=== PATIENT | male | born 1980 | race Caucasian/White ===

== ENCOUNTER 2019-03-20 21:10 | Emergency (ER) | payer SELFPAY ==
--- NOTE | 2019-03-20 21:15 | EDM.PDOC ---
ED HPI GENERAL MEDICAL PROBLEM - General Chief Complaint: Upper Extremity Injury/Pain Stated Complaint: POSSIBLE BROKEN RT HAND Time Seen by Provider: 03/20/19 21:14 Source of Information: Reports: Patient History Limitations: Reports: No Limitations - History of Present Illness INITIAL COMMENTS - FREE TEXT/NARRATIVE: HISTORY AND PHYSICAL: History of present illness: 38-year-old male presents to the emergency room complaining of right hand pain. He indicates that he was at home working on a car when a wrench slipped out of his right hand and in frustration he punched the car. Most of his pain is located to the dorsal lateral side fourth and fifth digits. He is able to move the wrist without any pain nor does he have any pinpoint tenderness upon palpation. Denies any other extremity involvement or pain. Took ibuprofen at home upon the time of the incident. Reports he is otherwise in good health and has no other health conditions. Review of systems: As per history of present illness and below otherwise all systems reviewed and negative. Past medical history: As per history of present illness and as reviewed below otherwise noncontributory. Surgical history: As per history of present illness and as reviewed below otherwise noncontributory. Social history: See social history for further information Family history: As per history of present illness and as reviewed below otherwise noncontributory. Physical exam: General: Well-developed and well-nourished 38-year-old male. Alert and oriented. Nontoxic appearing and in no acute distress. HEENT: Atraumatic, normocephalic, pupils equal and reactive bilaterally, negative for conjunctival pallor or scleral icterus, mucous membranes moist, trachea midline. No drooling or trismus noted. No meningeal signs. No hot potato voice noted. Lungs: Clear to auscultation, breath sounds equal bilaterally. Heart: S1S2, regular rate and rhythm without overt murmur Abdomen: Soft, nondistended, nontender. Skin: See extremity for details. Intact, warm, dry. No lesions or rashes noted. Extremities: Soft tissue swelling and tenderness to the base of the hand to the fourth and fifth digits. Good flexion and extension of the wrist. No snuffbox tenderness. Good flexion and extension of all digits. Strong radial pulse. Otherwise moves all other extremities per self without difficulty or deficits. Neurovascular unremarkable. Neuro: Awake, alert, oriented. Cranial nerves II through XII unremarkable. Cerebellum unremarkable. Motor and sensory unremarkable throughout. Exam nonfocal. Notes: Patient declines the need for wrist x-ray. He has no tenderness into the wrist. Agreeable for hand imaging. X-ray shows an acute, comminuted 5th metacarpal base fracture with ulnar subluxation of the primary shaft fragment. Fiberglass splint placed on patient along with sling. We discussed the need for appropriate follow-up with the orthopedic provider. Signs and symptoms that would prompt him to return to the emergency room were reviewed and discussed. Supportive care measures were reviewed and discussed. Voices understanding and is agreeable to plan of care. Denies any further questions or concerns at this time. Diagnostics: X-ray right hand Therapeutics: Fiberglass splint, sling Prescription: Gary #20 Impression: Metacarpal Fracture, fifth digit on right hand Plan: 1. Rest, ice, elevate the affected extremity. Please wear the splint and sling as directed. 2. Tylenol and/or Ibuprofen as needed for pain management. Gary for moderate to severe pain. This medication may cause drowsiness a do not take it on driving or needing to be functioning outside of the house. 3. Follow up with the Orthopedic provider as we discussed. Please call on Friday to set up a follow-up appointment within the next 1 week. Return to the ED as needed and as discussed. Definitive disposition and diagnosis as appropriate pending reevaluation and review of above. Onset: Today Location: Reports: Upper Extremity, Right Right Hand Pain Score (Numeric/FACES): 7 - Related Data Allergies Allergy/AdvReac Type Severity Reaction Status Date / Time No Known Allergies Allergy Verified 03/20/19 21:19 Home Meds: Home Meds . [No Known Home Meds] 03/20/19 [History] Review of Systems - Review of Systems Review Of Systems: ROS reveals no pertinent complaints other than HPI. ED EXAM, GENERAL - Physical Exam Exam: See Below (See dictation) Course - Vital Signs Last Recorded V/S: Last Vital Signs Temp 97.5 F 03/20/19 21:13 Pulse 85 03/20/19 21:13 Resp BP 149/100 H 03/20/19 21:13 Pulse Ox 98 03/20/19 21:13 - Orders/Labs/Meds Orders: Active Orders 24 hr Category Date Time Status Hand Comp Min 3V Rt [CR] Stat Exams 03/20/19 21:14 Taken Meds: Medications Discontinued Medications Generic Name Dose Route Start Last Admin Trade Name Belia PRN Reason Stop Dose Admin Ketorolac Tromethamine 60 mg 03/20/19 21:18 03/20/19 21:44 Toradol IM 03/20/19 21:19 Not Given ONETIME ONE Departure - Departure Time of Disposition: 21:31 Disposition: Home, Self-Care 01 Clinical Impression: Fracture, metacarpal Qualifiers: Encounter type: initial encounter Metacarpal bone: fifth Fracture type: closed Metacarpal location: base Fracture alignment: nondisplaced Laterality: right Qualified Code(s): S62.346A - Nondisplaced fracture of base of fifth metacarpal bone, right hand, initial encounter for closed fracture - Discharge Information Instructions: Metacarpal Fracture, [id number] Referrals: PCP,None [Primary Care Provider] - Forms: ED Department Discharge Additional Instructions: The following information is given to patients seen in the emergency department who are being discharged to home. This information is to outline your options for follow-up care. We provide all patients seen in our emergency department with a follow-up referral. The need for follow-up, as well as the timing and circumstances, are variable depending upon the specifics of your emergency department visit. If you don't have a primary care physician on staff, we will provide you with a referral. We always advise you to contact your personal physician following an emergency department visit to inform them of the circumstance of the visit and for follow-up with them and/or the need for any referrals to a consulting specialist. The emergency department will also refer you to a specialist when appropriate. This referral assures that you have the opportunity for follow-up care with a specialist. All of these measure are taken in an effort to provide you with optimal care, which includes your follow-up. Under all circumstances we always encourage you to contact your private physician who remains a resource for coordinating your care. When calling for follow-up care, please make the office aware that this follow-up is from your recent emergency room visit. If for any reason you are refused follow-up, please contact the [facility] Emergency Department at and asked to speak to the emergency department charge nurse. [facility] [address] [place] [address] [facility] [address] [place] [address] [facility] Professional Building [address], [address] [place] [address] 1. Rest, ice, elevate the affected extremity. Please wear the splint and sling as directed. 2. Tylenol and/or Ibuprofen as needed for pain management. Gary for moderate to severe pain. This medication may cause drowsiness a do not take it on driving or needing to be functioning outside of the house. 3. Follow up with the Orthopedic provider as we discussed. Please call on Friday to set up a follow-up appointment within the next 1 week. Return to the ED as needed and as discussed. - My Orders Last 24 Hours: My Active Orders 03/20/19 21:14 Hand Comp Min 3V Rt [CR] Stat - Assessment/Plan Last 24 Hours: My Active Orders 03/20/19 21:14 Hand Comp Min 3V Rt [CR] Stat
[2019-03-20] MEDS ORDERED: Ketorolac 60 MG/2 ML SDV IM ONE (21:18)
--- NOTE | 2019-03-20 21:49 | CR ---
INDICATION: Pain following punching car. TECHNIQUE: Three views of the right hand. COMPARISON: None. FINDINGS: Acute, comminuted fracture of the 5th metacarpal base with ulnar subluxation of the primary shaft fragment. No other fracture or other significant abnormality. IMPRESSION: Acute, comminuted 5th metacarpal base fracture with ulnar subluxation of the primary shaft fragment. Dictated by George Rachel MD @ Mar 20 2019 9:46PM Signed by Dr. George Rachel @ Mar 20 2019 9:48PM
== END 2019-03-20 21:50 | disposition home or self-care (01) ==
LOC: MW.ED 21:10
DX: S62.346A Nondisplaced fracture of base of fifth metacarpal bone, right hand, initial encounter for closed fracture (principal); W20.8XXA Other cause of strike by thrown, projected or falling object, initial encounter
CPT/HCPCS: 73130-26-RT; 73130-RT; 99283-25

== ENCOUNTER 2022-04-30 12:50 | Emergency (ER) | payer SELFPAY ==
[2022-04-30] MEDS ORDERED: Sodium Chloride 0.9% 1,000 ML IV ONE (13:23)
[2022-04-30] MEDS ORDERED: Dexamethasone 10 MG/ML SDV IVPUSH ONE (13:24)
[2022-04-30] MEDS ORDERED: Clindamycin Phosphate in D5W 600 MG in Premix Bag 1 BAG IV ONE ×2 (13:24)
[2022-04-30 14:23] LABS: CARBON DIOXIDE,CO2 28.4 mmol/L (21.0-32.0)
[2022-04-30] MEDS ORDERED: Iopamidol 755 MG/ML 500 ML Multipack Bottle IVPUSH STA (15:13)
== END 2022-04-30 17:37 | disposition home or self-care (01) ==
LOC: MW.ED 12:50
DX: L03.211 Cellulitis of face (principal); K04.7 Periapical abscess without sinus; Z20.822 Contact with and (suspected) exposure to COVID-19
CPT/HCPCS: 36415; 70487; 80053; 85025; 87635; 96361; 96365; 96375; 99283; J1100; J3490; J7030; Q9967; 99284; U0002

== ENCOUNTER 2024-02-19 00:21 | Day surgery (SDC) | payer MEDICAID ==
[2024-02-19 01:38] LABS: BASOPHILS ABSOLUTE AUTO 0.06 K/uL (0.00-0.20); BASOPHILS PERCENT AUTO 0.3 % (0.0-1.0); HEMATOCRIT 41.7 % (42.0-52.0); HEMOGLOBIN 14.3 g/dL (14.0-18.0); IMMATURE GRAN ABSOLUTE AUTO 0.06 K/uL (0.00-0.05); IMMATURE GRAN PERCENT AUTO 0.3 % (0.0-0.4); LYMPHOCYTES ABSOLUTE AUTO 1.05 K/uL (1.00-4.80); LYMPHOCYTES PERCENT AUTO 5.4 % (24.0-44.0); MEAN CORPUSCULAR HEMOGLOBIN 28.9 pg (28.0-32.0); MEAN CORPUSCULAR HGB CONC 34.3 g/dL (32.0-36.0); MEAN CORPUSCULAR VOLUME 84.4 fL (83.0-99.0); MONOCYTES ABSOLUTE AUTO 1.05 K/uL (0.00-0.80); MONOCYTES PERCENT AUTO 5.4 % (0.0-8.0); NEUTROPHILS ABSOLUTE AUTO 17.33 K/uL (1.80-7.70); NEUTROPHILS PERCENT AUTO 88.6 % (41.0-71.0); PLATELET COUNT,PLT 268 K/uL (150-400); RED BLOOD CELL COUNT 4.94 M/uL (4.52-5.90); WHITE BLOOD CELL COUNT,WBC 19.55 K/uL (3.9-11.3)
[2024-02-19] MEDS: Ondansetron 4 MG/2 ML SDV IVPUSH ONE (01:38)
[2024-02-19] MEDS: Sodium Chloride 0.9% 1,000 ML IV ONE (01:38)
[2024-02-19] MEDS: Sodium Chloride 0.9% 2.5 ML Syringe FLUSH PRN (01:38)
[2024-02-19] MEDS: Sodium Chloride 0.9% 10 ML Syringe FLUSH PRN (01:38)
[2024-02-19] MEDS: Famotidine 20 MG/2 ML SDV IVPUSH ONE (01:40)
[2024-02-19] MEDS: Morphine 2 MG/ML SYRINGE IVPUSH ONE (01:43)
[2024-02-19 02:04] LABS: ALBUMIN 3.7 g/dL (3.4-5.0); BILIRUBIN TOTAL 0.8 mg/dL (0.2-1.0); CALCIUM 8.9 mg/dL (8.5-10.1); CARBON DIOXIDE,CO2 27.6 mmol/L (21.0-32.0); CREATININE 0.8 mg/dL (0.8-1.3); EST CRCL DRUG DOSING (CG) 143.77 mL/min; POTASSIUM,K 3.5 mmol/L (3.5-5.1); PROTEIN TOTAL,TP 7.3 g/dL (6.4-8.2)
[2024-02-19] MEDS: Iopamidol 755 MG/ML 500 ML Multipack Bottle IVPUSH ONE (02:25)
[2024-02-19] MEDS: Piperacillin/Tazobactam 4.5 GM in Sodium Chloride 0.9% 100 ML IV ONE (03:00)
[2024-02-19] MEDS ORDERED: D5 1/2 NS w/ 40 mEq/L KCl 1,000 ML IV SCH (04:45)
[2024-02-19] MEDS: Lactated Ringers 1,000 ML IV SCH (04:52)
[2024-02-19 04:57] LABS: APPEARANCE,URINE CLEAR; BILIRUBIN,URINE NEGATIVE (NEGATIVE); COLOR,URINE YELLOW; GLUCOSE,URINE NEGATIVE (NEGATIVE); KETONES,URINE TRACE mg/dL (NEGATIVE); LEUKOCYTE ESTERASE,URINE TRACE (NEGATIVE); NITRITE,URINE NEGATIVE (NEGATIVE); OCCULT BLOOD,URINE SMALL (NEGATIVE); PROTEIN,URINE NEGATIVE (NEGATIVE); UROBILINOGEN,URINE 0.2 EU/dL (<2.0)
[2024-02-19 05:06] LABS: BACTERIA,URINE NOT SEEN (NEGATIVE); EPITHELIAL CELLS,URINE RARE (NONE-FEW)
[2024-02-19] MEDS ORDERED: Sodium Chloride 0.9% 20 ML SDV IV PRN (07:28)
[2024-02-19] MEDS ORDERED: Sodium Chloride 0.9% 10 ML Syringe FLUSH PRN (07:28)
[2024-02-19] MEDS ORDERED: Sodium Chloride 0.9% 2.5 ML Syringe FLUSH PRN (07:28)
[2024-02-19] MEDS ORDERED: Lactated Ringers 1,000 ML IV SCH (07:30)
[2024-02-19] MEDS ORDERED: Ondansetron 4 MG/2 ML SDV IVPUSH PRN ×2 (07:32→08:38)
[2024-02-19] MEDS: HYDROmorphone 0.5 MG/0.5 ML Syringe IVPUSH PRN (07:56)
[2024-02-19] MEDS ORDERED: fentaNYL 250 MCG/5 ML SDV ONE (08:18)
[2024-02-19] MEDS ORDERED: Propofol 200 MG/20 ML SDV ONE (08:18)
[2024-02-19] MEDS ORDERED: Morphine 10 MG/ML SDV ONE (08:18)
[2024-02-19] MEDS ORDERED: Water For Injection, Sterile 20 ML ONE (08:20)
[2024-02-19] MEDS ORDERED: Rocuronium Bromide 50 MG/5 ML Syringe ONE (08:20)
[2024-02-19] MEDS ORDERED: dexmedeTOMIDine HCl 200 MCG/2 ML SDV ONE (08:20)
[2024-02-19] MEDS ORDERED: Bupivacaine 0.5% 30 ML SDV ONE (08:24)
[2024-02-19] MEDS ORDERED: Bupivacaine 0.25% 30 ML SDV ONE (08:24)
[2024-02-19] MEDS ORDERED: Naloxone 0.4 MG/ML SDV IVPUSH PRN (08:38)
[2024-02-19] MEDS ORDERED: fentaNYL 50 MCG/ML SDV IVPUSH PRN (08:38)
[2024-02-19] MEDS ORDERED: HYDROmorphone 1 MG/ML Syringe IVPUSH PRN (08:38)
[2024-02-19] MEDS ORDERED: droPERidol 5 MG/2 ML SDV IVPUSH PRN (08:38)
[2024-02-19] MEDS ORDERED: Morphine 2 MG/ML SYRINGE IVPUSH PRN (08:38)
[2024-02-19] MEDS ORDERED: Albuterol 0.083% 2.5 MG/3 ML Neb Soln NEB PRN (08:38)
[2024-02-19] MEDS ORDERED: Metoclopramide 10 MG/2 ML SDV IVPUSH PRN (08:38)
[2024-02-19] MEDS ORDERED: Albuterol 8 GM Inhaler ONE (09:10)
[2024-02-19] MEDS ORDERED: Lidocaine 2% 11 ML Jelly Filled Syringe ONE (09:20)
[2024-02-19] MEDS ORDERED: Ketamine HCL/NACL, ISO-OSM 50 MG/5 ML Syringe ONE (09:43)
[2024-02-19] MEDS ORDERED: Ketorolac 30 MG/ML SDV ONE (10:07)
[2024-02-19] MEDS ORDERED: Ondansetron 4 MG/2 ML SDV ONE (10:07)
[2024-02-19] MEDS ORDERED: Sugammadex Sodium 200 MG/2 ML VIAL IV ONE (10:07)
[2024-02-19] MEDS ORDERED: Dexamethasone 4 MG/ML 5 ML MDV ONE (10:07)
[2024-02-19] MEDS ORDERED: Acetaminophen/oxyCODONE 325-5 MG Tab PO PRN (10:23)
== END 2024-02-19 16:15 | disposition home or self-care (01) ==
LOC: MW.ED 00:21 → MW.SDS 05:07 → MW.MS 05:20 → MW.SDS 16:15
PROVIDERS: ATTEND Surgery
DX: K35.33 Acute appendicitis with perforation, localized peritonitis, and gangrene, with abscess (principal); J45.909 Unspecified asthma, uncomplicated; F17.210 Nicotine dependence, cigarettes, uncomplicated; Z79.899 Other long term (current) drug therapy
CPT/HCPCS: 36415; 44970; 64488; 74177; 80053; 81001; 83690; 85025; 96361; 96365; 96375; 99285; A9270; J0131; J0665; J1100; J1170; J1885; J2270; J2405; J2543; J2704; J3010; J3490; J7030; J7120; Q9967; 64486

== ENCOUNTER 2024-04-04 08:16 | Emergency (ER) | payer MEDICAID ==
[2024-04-04] MEDS: Sodium Chloride 0.9% 2.5 ML Syringe FLUSH PRN (08:27)
[2024-04-04] MEDS: Sodium Chloride 0.9% 10 ML Syringe FLUSH PRN (08:27)
[2024-04-04 08:33] LABS: BASOPHILS ABSOLUTE AUTO 0.07 K/uL (0.00-0.20); BASOPHILS PERCENT AUTO 0.5 % (0.0-1.0); HEMATOCRIT 43.3 % (42.0-52.0); HEMOGLOBIN 15.1 g/dL (14.0-18.0); IMMATURE GRAN ABSOLUTE AUTO 0.04 K/uL (0.00-0.05); IMMATURE GRAN PERCENT AUTO 0.3 % (0.0-0.4); LYMPHOCYTES ABSOLUTE AUTO 1.68 K/uL (1.00-4.80); LYMPHOCYTES PERCENT AUTO 12.8 % (24.0-44.0); MEAN CORPUSCULAR HEMOGLOBIN 29.1 pg (28.0-32.0); MEAN CORPUSCULAR HGB CONC 34.9 g/dL (32.0-36.0); MEAN CORPUSCULAR VOLUME 83.4 fL (83.0-99.0); MEAN PLATELET VOLUME 9.6 fL (9.4-12.4); MONOCYTES ABSOLUTE AUTO 0.61 K/uL (0.00-0.80); MONOCYTES PERCENT AUTO 4.6 % (0.0-8.0); NEUTROPHILS ABSOLUTE AUTO 10.77 K/uL (1.80-7.70); NEUTROPHILS PERCENT AUTO 81.8 % (41.0-71.0); PLATELET COUNT,PLT 306 K/uL (150-400); RED BLOOD CELL COUNT 5.19 M/uL (4.52-5.90); WHITE BLOOD CELL COUNT,WBC 13.17 K/uL (3.9-11.3)
[2024-04-04] MEDS: Ketorolac 30 MG/ML SDV IVPUSH ONE (08:47)
[2024-04-04] MEDS: Sodium Chloride 0.9% 1,000 ML IV STA (08:47)
[2024-04-04] MEDS: Morphine 4 MG/ML Syringe IVPUSH ONE ×2 (08:47→10:35)
[2024-04-04 08:54] LABS: A/G RATIO 1.1 (0.9-1.6); ALBUMIN 4.1 g/dL (3.4-5.0); BILIRUBIN TOTAL 0.4 mg/dL (0.2-1.0); CARBON DIOXIDE,CO2 28.9 mmol/L (21.0-32.0); CREATININE 1.5 mg/dL (0.8-1.3); EST CRCL DRUG DOSING (CG) 76.68 mL/min; POTASSIUM,K 4.3 mmol/L (3.5-5.1); PROTEIN TOTAL,TP 7.7 g/dL (6.4-8.2)
[2024-04-04] MEDS: Iopamidol 755 MG/ML 500 ML Multipack Bottle IVPUSH STA (09:51)
[2024-04-04 10:42] LABS: APPEARANCE,URINE CLEAR; BILIRUBIN,URINE NEGATIVE (NEGATIVE); COLOR,URINE YELLOW; GLUCOSE,URINE NEGATIVE (NEGATIVE); KETONES,URINE NEGATIVE (NEGATIVE); LEUKOCYTE ESTERASE,URINE SMALL (NEGATIVE); NITRITE,URINE NEGATIVE (NEGATIVE); OCCULT BLOOD,URINE LARGE (NEGATIVE); PH,URINE 6.5 (5.0-8.0); PROTEIN,URINE NEGATIVE (NEGATIVE); UROBILINOGEN,URINE 0.2 EU/dL (<2.0)
[2024-04-04 10:51] LABS: RBC,URINE 125-150 (0-2/HPF)
[2024-04-04 10:52] LABS: BACTERIA,URINE FEW (NEGATIVE); CALCIUM OXALATE CRYSTALS,URINE FEW (NEGATIVE); EPITHELIAL CELLS,URINE MODERATE (NONE-FEW)
[2024-04-04] MEDS: cefTRIAXone 1 GM in Sodium Chloride 0.9% 50 ML IV ONE (11:37)
== END 2024-04-04 14:05 ==
LOC: MW.ED 08:16
DX: N13.2 Hydronephrosis with renal and ureteral calculous obstruction (principal); N17.9 Acute kidney failure, unspecified; I10 Essential (primary) hypertension; J45.909 Unspecified asthma, uncomplicated; Z86.16 Personal history of COVID-19; Z79.899 Other long term (current) drug therapy; Z75.8 Other problems related to medical facilities and other health care
CPT/HCPCS: 36415; 74177; 80053; 81001; 83690; 85025; 96361; 96365; 96375; 96376; 99285; J0696; J1885; J2270; J3490; J7030; Q9967